=== PATIENT | female | born 2000 | race African-American/Black ===

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

== ENCOUNTER 2019-02-17 19:22 | Emergency (ER) | payer OTHER ==
[~2019-02-17] VITALS: Ht 165.1 cm; Wt 59.4 kg
--- NOTE | 2019-02-17 19:53 | NUR ---
Pt provided urine sample, sent to lab.
[2019-02-17 20:03] LABS: *URINE HCG, QUAL NEGATIVE (NEGATIVE)
[2019-02-17 20:04] LABS: *BILIRUBIN,URIN NEGATIVE (NEGATIVE); *BLOOD, URINE NEGATIVE (NEGATIVE); *CLARITY,URINE CLEAR (CLEAR); *COLOR,URINE YELLOW (YELLOW); *KETONES,URINE NEGATIVE (NEGATIVE); *UROBILINOGEN,URINE 0.2 E.U./dl (NORMAL); LEUKOCYTE ESTERASE ,URINE NEGATIVE (NEGATIVE); NITRITE, URINE NEGATIVE (NEGATIVE); UGLUCOSE NEGATIVE (NEGATIVE)
[2019-02-17] MEDS ORDERED: FLUCONAZOLE 100 MG TABLET PO ONE (21:00)
[2019-02-17] MEDS ORDERED: FLUCONAZOLE 100 MG TABLET ONE (21:13)
--- NOTE | 2019-02-17 21:13 | NUR ---
Patient discharged to home in stable conditon. Written and verbal after care instructions given. Patient verbalizes understanding of instructions. WALKED OUT OF ER WITH NO DISTRESS NOTED.
[2019-02-17 21:17] VITALS: BP 110/84
== END 2019-02-17 21:18 | disposition home or self-care (01) ==
LOC: ER 19:32
DX: B95.8 Unspecified staphylococcus as the cause of diseases classified elsewhere (principal); F41.9 Anxiety disorder, unspecified; F32.9 Major depressive disorder, single episode, unspecified
CPT/HCPCS: 84703; A4663

== ENCOUNTER 2020-08-29 13:30 | Emergency (ER) | payer OTHER ==
[~2020-08-29] VITALS: Ht 162.6 cm; Wt 56.7 kg
--- NOTE | 2020-08-29 14:23 | NUR ---
Patient discharged to home in stable condition. Written and verbal after care instructions given. Patient verbalizes understanding of instructions. Stressed follow up or return to ER for worsening s/s.
== END 2020-08-29 14:23 | disposition home or self-care (01) ==
LOC: ER 13:30
DX: R59.0 Localized enlarged lymph nodes (principal)
CPT/HCPCS: A4663